=== PATIENT | female | born 1930 | race Caucasian/White ===

== ENCOUNTER 2017-02-16 21:09 | Emergency (ER) | payer MEDICARE, OTHER ==
[~2017-02-16] VITALS: Ht 162.6 cm; Wt 66.7 kg
[~2017-02-16 21:09] MED LIST: ATIVAN0.5 M1 PO; LASIX20 M1 PO; LEXAPRO20 M2 PO; METOPROLOL TART25 M1 PO; SEROQUEL25 M2 PO; SYNTHROID50 MC1 PO; TRAZODONE HCL50 M1 PO; TYLENOL325 M2 PO
[2017-02-16] MEDS ORDERED: LEXAPRO20 M2 PO (22:07)
[2017-02-16 23:07] LABS: BASO % 0.2 % (0-2); EOS % 3.3 % (0-7); EOSINOPHIL ABSOLUTE COUNT 0.2 tho/cmm (0.0-0.7); HCT-HEMATOCRIT 42.5 % (34.0-49.0); HGB-HEMOGLOBIN 13.8 gm/dl (12.0-15.5); IMMATURE GRANULOCYTES ABSOLUTE 0.02 tho/cmm (0-0.03); IMMATURE GRANULOCYTES PERCENT 0.3 % (0-0.3); MCH (MEAN CORPUSCULAR HGB) 28.6 pg (28.0-32.0); MCHC MEAN CORPUSCULAR HGB CONC 32.5 % (32.0-36.0); MCV (MEAN CELL VOLUME) 88.2 fl (82.0-96.0); MEAN PLATELET VOLUME 11.6 cmc (9.4-12.4); MONO % 7.1 % (0-12); MONOCYTE ABSOLUTE COUNT 0.5 tho/cmm (0.0-1.2); NEUTROPHIL ABSOLUTE COUNT 4.7 tho/cmm (1.6-8.0); NEUTROPHIL-AUTOMATED 4.7 tho/cmm (1.6-8.0); NEUTROPHILS % 73.1 % (40-80); PLATELET COUNT 205 tho/cmm (150-450); RED BLOOD COUNT 4.82 mil/cmm (4.00-5.20); RED CELL DISTRIBUTION WIDTH 15.3 % (12.4-16.4); WHITE BLOOD COUNT 6.4 tho/cmm (4.0-10.0)
[2017-02-16 23:24] LABS: ALB/GLOB RATIO 0.7 (0.8-2.0); ALBUMIN 2.9 g/dl (3.5-5.0); ALKALINE PHOSPHATASE 138 U/L (33-138); ALT/SGPT 13 U/L (12-78); ANION GAP 8 mmol/L (0-20); AST/SGOT 10 U/L (10-40); BILIRUBIN,TOTAL 0.5 mg/dl (0-1.5); BLOOD UREA NITROGEN 11 mg/dl (6-24); CALCIUM 9.3 mg/dl (8.5-10.5); CARBON DIOXIDE-VENOUS 29 mmol/L (22-32); CHLORIDE 106 mmol/l (96-110); CREATININE 0.92 mg/dl (0.50-1.10); GLUCOSE 91 mg/dL (70-110); MAGNESIUM 2.5 mg/dl (1.8-2.6); POTASSIUM 4.2 mmol/L (3.7-5.1); SODIUM 139 mmol/L (135-145); eGFR VALUE FOR BLACK 66 mL/Min
[2017-02-17 00:03] LABS: TSH-THYROID STIMULATING HORM. 1.02 uIU/ml (0.40-3.80)
[2017-02-17 00:30] LABS: URINE BILIRUBIN NEGATIVE (NEG); URINE BLOOD NEGATIVE (NEG); URINE GLUCOSE (UA) NEGATIVE (NEG); URINE KETONE MODERATE (NEG); URINE LEUKOCYTE ESTERASE POSITIVE (NEG); URINE NITRITE NEGATIVE (NEG); URINE PROTEIN SMALL (NEG); URINE SPECIFIC GRAVITY 1.025 (1.003-1.030)
[2017-02-17 00:31] LABS: URINE APPEARANCE HAZY; URINE COLOR YELLOW
[2017-02-17 00:53] LABS: URINE EPITHELIAL CELLS 0-3 /[HPF] (0-10); URINE RBC 0 /[HPF] (0-5)
[2017-02-17 00:54] LABS: URINE BACTERIA 2+
[2017-02-17] MEDS ORDERED: CIPRO500 M2 PO (01:32)
== END 2017-02-17 02:30 ==
LOC: EDMED 21:09
PROVIDERS: Emergency Medicine
PROC: 0HQ0XZZ Repair Scalp Skin, External Approach (ICD-10-PCS; principal; 2017-02-17)
DX: S01.01XA Laceration without foreign body of scalp, initial encounter (principal); N39.0 Urinary tract infection, site not specified; E86.0 Dehydration; W01.10XA Fall on same level from slipping, tripping and stumbling with subsequent striking against unspecified object, initial encounter; Y92.129 Unspecified place in nursing home as the place of occurrence of the external cause
CPT/HCPCS: C1751; J7030; P9612